=== PATIENT | female | born 1975 | race Caucasian/White ===

== ENCOUNTER 2019-07-25 05:28 | Day surgery (SDC) | payer BC ==
[~2019-07-25 05:28] MED LIST: ACETAMINOPHEN 325 MG TABLET PO PRN; CEFAZOLIN 1 GM/D5W RTU 1 GM/50 ML RTUPB IV ONE; CEFAZOLIN 1 GM/D5W RTU 1 GM/50 ML RTUPB IV PRN
[2019-07-25 06:15] LABS: ABSOLUTE BASOPHILS # (AUTO) 0.1 10^3/uL (0.0-0.2); ABSOLUTE EOSINOPHILS # (AUTO) 0.3 10^3/uL (0.0-0.6); ABSOLUTE LYMPHOCYTES (AUTO) 1.4 10^3/uL (0.5-4.7); ABSOLUTE MONOCYTES (AUTO) 0.5 10^3/uL (0.1-1.4); ABSOLUTE NEUT (AUTO) 4.6 10^3/uL (1.7-8.2); BASOPHILS % (AUTO) 0.9 % (0-2); EOSINOPHILS % (AUTO) 3.8 % (0-6); HEMATOCRIT 43.4 % (36.0-47.0); HEMOGLOBIN 15.6 g/dL (12.0-15.5); LYMPHOCYTES % (AUTO) 20.6 % (13-45); MEAN CORPUSCULAR HEMOGLOBIN 33.9 pg (27.0-33.4); MEAN CORPUSCULAR HGB CONC 35.9 g/dL (32.0-36.0); MEAN CORPUSCULAR VOLUME 94 fl (80-97); MONOCYTES % (AUTO) 6.7 % (3-13); PLATELET COUNT 200 10^3/uL (150-450); RED CELL DISTRIBUTION WIDTH 12.8 % (11.5-14.0); TOTAL CELLS COUNTED % (AUTO) 100 %; WHITE BLOOD COUNT 6.7 10^3/uL (4.0-10.5)
[2019-07-25 06:28] LABS: ALBUMIN 4.2 g/dL (3.5-5.0); ALKALINE PHOSPHATASE 157 U/L (38-126); AMYLASE 45 U/L (30-110); ANION GAP 10 (5-19); ASPARTATE AMINO TRANSFERASE 135 U/L (14-36); BILIRUBIN,DIRECT 0.4 mg/dL (0.0-0.4); BLOOD UREA NITROGEN 11 mg/dL (7-20); CALCIUM 9.2 mg/dL (8.4-10.2); CARBON DIOXIDE 27 mmol/L (22-30); CHLORIDE 101 mmol/L (98-107); GLUCOSE 93 mg/dL (75-110); POTASSIUM 3.6 mmol/L (3.6-5.0); TOTAL PROTEIN 7.7 g/dL (6.3-8.2)
[2019-07-25] MEDS ORDERED: LIDOCAINE 2% INJ (20 MG/ML) 20 ML MDV ONE (06:59)
[2019-07-25] MEDS ORDERED: FENTANYL CITRATE INJ/PF 100 MCG/2 ML AMPUL ONE ×2 (07:00→08:47)
[2019-07-25] MEDS ORDERED: MIDAZOLAM 2 MG/2 ML INJ ONE (07:01)
[2019-07-25] MEDS ORDERED: PROPOFOL INJ 200 MG/20 ML VIAL IV ONE (07:01)
[2019-07-25] MEDS ORDERED: BUPIVACAINE HCL 0.25 % INJ/PF (2.5 MG/1 ML) 30 ML VIAL ONE (07:03)
[2019-07-25] MEDS ORDERED: PROMETHAZINE HCL INJ 25 MG/1 ML VIAL IV PRN (07:39)
[2019-07-25] MEDS ORDERED: MORPHINE SULFATE 10 MG/ML INJ IV PRN (07:39)
[2019-07-25] MEDS ORDERED: ONDANSETRON HCL INJ/PF 4 MG/2 ML SDV IV PRN (07:39)
[2019-07-25] MEDS ORDERED: DIPHENHYDRAMINE HCL 50 MG/ML VIAL IV PRN (07:39)
[2019-07-25] MEDS ORDERED: MEPERIDINE HCL/PF INJ 25 MG/1 ML DISP.SYRIN IV PRN (07:39)
[2019-07-25] MEDS ORDERED: FENTANYL CITRATE INJ/PF 100 MCG/2 ML AMPUL IV PRN ×3 (07:39)
--- NOTE | 2019-07-25 08:41 | Operative Report ---
Operative Report DATE OF SURGERY: 07/25/19 PREOPERATIVE DIAGNOSIS: Symptomatic cholelithiasis with cholecystitis POSTOPERATIVE DIAGNOSIS: Same OPERATION: Laparoscopic cholecystectomy SURGEON: ZEN DELGADO PROMOTIONAL MODEL: RAFIA DINERO ANESTHESIA: GA TISSUE REMOVED OR ALTERED: 1 gallbladder with contents COMPLICATIONS: None ESTIMATED BLOOD LOSS: Minimal INTRAOPERATIVE FINDINGS: See below PROCEDURE: After obtaining informed consent, the patient was taken to the operating room. General Anesthesia was induced; the arms were extended, and the abdomen was exposed, and prepped and draped in a sterile fashion. Instrumentation was set up for laparoscopic cholecystectomy. Surgical plan and surgical timeout were conducted. A vertical incision was made above the umbilicus, and a verres needle was inserted uneventfully into the peritoneal cavity. Pneumoperitoneum was established. The verres needle was removed and a 5 mm trocar was inserted and a 5 mm flexible laparoscope was inserted. Visualization of the peritoneal cavity confirmed safe uneventful entry. Under direct visualization 3 additional 5 mm ports were established, one in the subxiphoid position and second in the subcostal position. A grasper was placed on the fundus of the gallbladder and the gallbladder is elevated over the right surface of the liver; a second grasper was used to grasp the infundibulum of the gallbladder. There were light, filmy adhesions between the gallbladder and the transverse colon which were taken down using a combination of blunt and electrocautery dissection. Visualization of the hepato biliary anatomy appeared normal. The neck of the gallbladder and junction with the cystic duct was dissected out. The Cystic artery was in its usual location, medial and cephalad to the cystic duct. The cystic artery was surrounded with a right angle clamp, clipped twice proximally, once distally and divided with laparoscopic scissors. We now opened the triangle of Calot by dividing the peritoneal reflection on both the medial and lateral sides of the cystic duct infundibular junction. The critical view was obtained. Photos were taken. We now milked the cystic duct of any possible stones, clipped the cystic duct proximally 2 times, once distall y and divided the duct with scissors. Photos were taken again. The gallbladder was now removed from the undersurface of the liver using hook cautery dissection. Graspers were repositioned and the gallbladder was removed uneventfully from the abdominal cavity through the super umbilical port site incision. The specimen was examined, then passed off to pathology for permanent analysis. We returned to the peritoneal cavity check for bleeding, and evidence of bile leak, and there was none. We Confirmed satisfactory placement of clips on cystic duct and cystic artery were secured . At this point we felt the operation was complete. The subcutaneous tissue was then anesthetized with quarter percent Marcaine Sponge and needle counts are correct. All ports removed under direct visualization pneumoperitoneum evacuated, the supraumbilical fascial defect closed with 0 Vicryl, and 5 mm port wounds closed with 3-0 Vicryl suture, benzoin and Steri-Strips. The patient was extubated, and taken to the recovery room in stable condition. The physician assistant manager quality management, Ms. Palafox, provided assistance during this case by: Assisting and port insertion, retracting tissue, instillation of local anesthesia and closure of skin incisions.
[2019-07-25] MEDS ORDERED: OXYCODONE-ACETAMINOPHEN 5-325 MG TABLET PO PRN (08:44)
--- NOTE | 2019-07-25 08:45 | Discharge Summary ---
Discharge Summary (SDC) - Discharge Final Diagnosis: cholelithiasis Date of Surgery: 07/25/19 Discharge Date: 07/25/19 Condition: Good Treatment or Instructions: [facility] [address], [place] [address] Discharge Instructions: Laparoscopic Surgery 1. General Information: a. DO NOT DRIVE a car or operate dangerous machinery for 3-4 days or while taking narcotic pain pills. b. DO NOT consume alcohol, tranquilizers, sleeping medications or any non- prescribed medications for 24 hours unless approved by your doctor or as long as taking narcotic prescription medications. c. DO NOT make important decisions or sign any important papers for the first 24 hours after surgery. d. When discharged home the same day of surgery have a responsible person with you for the first night. 2. Activity Restrictions: 2 weeks. a. NO heavy lifting, straining abdominal muscles, bending over a lot, yard work, house work, or sports for [address] for 3-4 days c. It is fine to go for walks, up and down steps, ride in a car. d. Elevate your head when sleeping/resting. 3. Treatment: a. You may shower 48 hours after surgery, no baths or swimming for 2 weeks. Leave paper strips (steri-strips) on the skin to fall off on their own. If still on at postoperative visit they will be removed then. b. Drainage of fluid or blood is not unusual from an incision. If occurs, you can clean with peroxide and cotton ball daily and cover with dry gauze until the wound seals. c. If a lot of bleeding occurs, you can hold pressure with a gauze or cloth over the site for 10 minutes and it will usually stop. If bleeding continues you will need to call for possible evaluation in office or emergency room. 4. Medications: a. _Toradol may be taken for pain as needed, one tablet every 6 hours. Do not take additional NSAIDs with Toradol. You may take Tylenol in addition to Toradol. b. You should resume all normal medications unless a change is specified by your doctors. 5. Diet: Begin with clear liquids and may progress to your normal diet if not nauseated. No high fat, high protein foods the day of surgery. 6. The following may occur after laparoscopic surgery: a. Shoulder or upper back ache from retained gas that should resolve in 1-2 days b. Soreness and bruising at incision sites will resolve with time. c. Scrotal swelling (labia in women) and bruising is often seen after hernia surgery. d. Sore throat e. Fatigue may last days to weeks. f. Difficulty urinating may occur and may need to come into emergency room for urinary catheter placement. 7. Notify Physician If: a. Worsening or pain not improved with pain medication b. Persistent nausea and vomiting c. Fever above 101 d. Persistent bleeding or swelling at operative site e. Unable to urinate and uncomfortable bladder 6-8 hours after surgery 8..Follow Up Care: a. Schedule a follow up appointment with your doctor for 2 weeks. In the event of any postoperative problems or questions or you may call the office during business hours or the On-Call physician evenings and weekends at [facility]. [facility] I understand the instructions for my postoperative care as described above and a copy has been given to me. Patient/Significant Other Witness Date Prescriptions: Ketorolac Tromethamine [Toradol 10 mg Tablet] 10 mg PO Q6HP PRN #20 tablet PRN Reason: Referrals: JOCELYN CANADA NP [Primary Care Provider] - Discharge Diet: Other (Comments) - small bland portions then progress Discharge Activity: No Lifting Over 10 Pounds, No Lifting/Push/Pulling Report the Following to Your Physician Immediately: Vomiting, Increase in Pain, Fever over 101 Degrees, Unusual Bleeding, Redness, Swelling, Warmth, Increased Soreness
[2019-07-25] MEDS ORDERED: ACETAMINOPHEN 1,000 MG/100 ML RTUPB IV ONE ×2 (09:05→09:30)
[2019-07-25] MEDS: FENTANYL CITRATE INJ/PF 100 MCG/2 ML AMPUL ONE ×2 (09:05→09:10)
[2019-07-25] MEDS ORDERED: SUCCINYLCHOLINE CHLORIDE INJ 200 MG/10 ML VIAL ONE (09:34)
[2019-07-25] MEDS ORDERED: KETOROLAC TROMETHAMINE 60 MG/2 ML SDV ONE (09:34)
[2019-07-25] MEDS ORDERED: DEXAMETHASONE SOD PHOSPHATE INJ 4 MG/1 ML VIAL ONE (09:34)
[2019-07-25] MEDS ORDERED: ROCURONIUM BROMIDE INJ 50 MG/5 ML VIAL IV ONE (09:34)
[2019-07-25] MEDS ORDERED: ONDANSETRON HCL INJ/PF 4 MG/2 ML SDV ONE (09:34)
[2019-07-25 11:14] VITALS: BP 134/85
== END 2019-07-25 11:25 | disposition home or self-care (01) ==
LOC: OROUT 05:28
PROVIDERS: ATTEND Surgery
DX: K80.10 Calculus of gallbladder with chronic cholecystitis without obstruction (principal); Z79.899 Other long term (current) drug therapy; I10 Essential (primary) hypertension
CPT/HCPCS: 36415; 82150; 84703; 85025; 80076; 80048; 88304 ×2; 47562; J2250; J3490 ×2; J0690; J1100; J1885; J3010; J0330; J2405; J2704; J0131; 790